=== PATIENT | female | born 1990 | race Caucasian/White ===

== ENCOUNTER 2022-10-27 19:15 | Inpatient (IN) | payer OTHER ==
[2022-10-27 20:56] VITALS: RESP 18
[2022-10-27] MEDS: DEXTROSE 5%-LACTATED RINGERS 1,000 ML IV SCH (21:45)
[2022-10-27 22:40] LABS: BASO % 0.1 % (0-2.0); EOS % 1.9 % (0-4.5); HEMATOCRIT 35.9 % (32.4-45.2); HEMOGLOBIN 11.8 GM/dL (10.7-15.3); LYMPH % 27.3 % (8-40); MCHC 32.9 g/dl (32.0-36.0); MEAN PLT VOLUME 8.9 fl (7.5-11.1); MONO % 7.9 % (3.8-10.2); NEUT % 62.8 % (42.8-82.8); PLATELET COUNT 165 10^3/uL (134-434); RBC 4.22 M/mm3 (3.60-5.2); RDW 15.6 % (11.6-15.6); WHITE BLOOD COUNT 6.4 K/mm3 (4.0-10.0)
[2022-10-27 22:50] LABS: BLOOD UREA NITROGEN 9.7 mg/dL (7-18); CALCIUM 8.8 mg/dL (8.5-10.1)
[2022-10-27 22:53] LABS: INR 1.03 (0.83-1.09)
[2022-10-27 22:54] LABS: CREATININE 0.4 mg/dL (0.55-1.3)
[2022-10-27 22:57] LABS: ACTIVATED PTT 25.4 SECONDS (25.2-36.5)
[2022-10-27] MEDS: MISOPROSTOL 100 MCG TABLET PV SCH (23:15)
[2022-10-27] MEDS ORDERED: SODIUM CHLORIDE 500 ML IV ONE (23:30)
[2022-10-27] MEDS ORDERED: SODIUM CHLORIDE 500 ML IV STA (23:31)
[2022-10-28 00:02] LABS: HIV INTERPRETATION NEGATIVE (NEGATIVE)
[2022-10-28 01:08] VITALS: BMI 41.3
[2022-10-28] MEDS: DEXTROSE 5%-LACTATED RINGERS 1,000 ML IV SCH ×2 (01:30→09:42)
[2022-10-28] MEDS ORDERED: PENICILLIN G POTASSIUM 5,000,000 UNIT/250 ML BAG IVPB ONE (06:17)
[2022-10-28] MEDS ORDERED: morphine SULFATE 4 MG/ML VIAL IVPB ONE (08:09)
[2022-10-28] MEDS ORDERED: morphine CARPU-JECT 8 MG/1 ML DISP.SYRIN IVPB ONE (08:09)
[2022-10-28] MEDS ORDERED: morphine SULFATE 4 MG/ML VIAL ONE (08:15)
[2022-10-28] MEDS: MISOPROSTOL 100 MCG TABLET PV SCH ×2 (09:25→19:23)
[2022-10-28] MEDS ORDERED: FENTANYL/BUPIVACAINE/NS/PF - PCEA - 50 ML DISP.SYRIN EP ONE (10:55)
[2022-10-28] MEDS ORDERED: NALOXONE HCL 0.4 MG/ML VIAL IVPUSH PRN (11:12)
[2022-10-28] MEDS ORDERED: BUPIVACAINE HCL/PF 0.25% (2.5MG/ML) 10 ML VIAL ONE (11:13)
[2022-10-28] MEDS ORDERED: FENTANYL CITRATE/PF 50 MCG/ML VIAL ONE (11:13)
[2022-10-28] MEDS ORDERED: FENTANYL/BUPIVACAINE/NS/PF - PCEA - 50 ML DISP.SYRIN EP SCH (11:15)
[2022-10-28] MEDS: OXYTOCIN 20 UNITS in 0.9% NS 20 UNIT/1,000 ML INFUS.BAG IV SCH ×2 (11:51→14:31)
[2022-10-28] MEDS ORDERED: OXYTOCIN 20 UNITS in 0.9% NS 20 UNIT/1,000 ML INFUS.BAG IV ONE ×2 (11:52→14:17)
[2022-10-28] MEDS ORDERED: ACETAMINOPHEN 325 MG TABLET (FP) PO PRN (12:54)
[2022-10-28] MEDS ORDERED: BENZOCAINE 28 GM HEMORRHOIDAL OINTMENT TP PRN (12:54)
[2022-10-28] MEDS ORDERED: WITCH HAZEL 50% (TUCKS) 40 PAD/JAR PAD TP PRN (12:54)
[2022-10-28] MEDS: IBUPROFEN 600 MG TABLET (FP) PO PRN (21:27)
[2022-10-29 07:46] LABS: BASO % 0.2 % (0-2.0); HEMATOCRIT 34.1 % (32.4-45.2); HEMOGLOBIN 11.1 GM/dL (10.7-15.3); LYMPH % 22.4 % (8-40); MCH 28.2 pg (25.7-33.7); MCHC 32.6 g/dl (32.0-36.0); MEAN CELL VOLUME 86.7 fl (80-96); MEAN PLT VOLUME 9.1 fl (7.5-11.1); MONO % 4.9 % (3.8-10.2); NEUT % 71.5 % (42.8-82.8); PLATELET COUNT 151 10^3/uL (134-434); RBC 3.94 M/mm3 (3.60-5.2); RDW 15.8 % (11.6-15.6); WHITE BLOOD COUNT 7.3 K/mm3 (4.0-10.0)
[2022-10-29] MEDS: PRENATAL VITAMINS W/ FOLIC ACID TABLET (FP) PO SCH (09:20)
[2022-10-29] MEDS: IBUPROFEN 600 MG TABLET (FP) PO PRN ×2 (09:23→20:59)
[2022-10-30] MEDS: IBUPROFEN 600 MG TABLET (FP) PO PRN (09:35)
[2022-10-30] MEDS: PRENATAL VITAMINS W/ FOLIC ACID TABLET (FP) PO SCH (09:35)
[2022-10-30 10:25] VITALS: BP 126/80; PULSE 83; TEMP 98.3
== END 2022-10-30 11:55 | disposition home or self-care (01) | DRG 807 ==
LOC: JLDR 19:15 → J3W 10-28 15:05
PROVIDERS: ADMIT Obstetrics & Gynecology Maternal & Fetal Medicine; ATTEND Obstetrics & Gynecology Maternal & Fetal Medicine
PROC: 10E0XZZ Delivery of Products of Conception, External Approach (ICD-10-PCS; principal; 2022-10-28)
PROC: 0HQ9XZZ Repair Perineum Skin, External Approach (ICD-10-PCS; 2022-10-28)
DX: O10.92 Unspecified pre-existing hypertension complicating childbirth (principal); O99.214 Obesity complicating childbirth; O70.0 First degree perineal laceration during delivery; Z3A.38 38 weeks gestation of pregnancy; Z37.0 Single live birth
CPT/HCPCS: 36415; 80048; 85025; 85610; 85730; 86780; 86850; 86900; 86901; 87389